=== PATIENT | male | born 1995 | race Caucasian/White ===

== ENCOUNTER 2020-03-15 15:27 | Emergency (ER) | payer OTHER ==
--- NOTE | 2020-03-15 15:41 | PDOC ---
Rapid Medical Evaluation Time Seen by Provider: 03/15/20 15:39 Medical Evaluation: Allergies Allergy/AdvReac Type Severity Reaction Status Date / Time No Known Allergies Allergy Verified 03/15/20 15:39 03/15/20 15:39 Pt reports sore throat, fever, cough, since . No known covid exposure Exam: throat erythema with 2+ tonsils, lungs CTAB, afebrile Orders: Motrin, Strep test. Pt to proceed to the ER for further evaluation Discharge Disposition - Diagnosis Sore throat - Referrals - Patient Instructions - Post Discharge Activity
[2020-03-15 15:42] VITALS: BP 125/81; PULSE 115; TEMP 101.9; BMI 28.8
[2020-03-15] MEDS ORDERED: PENICILLIN G BENZATHINE 1,200,000 UNIT/2 ML PFS IM ONE ×2 (16:40→16:52)
[2020-03-15] MEDS ORDERED: DEXAMETHASONE LIQUID 0.5 MG/5 ML PO ONE (16:40)
--- NOTE | 2020-03-15 16:44 | PDOC ---
History of Present Illness - General Chief Complaint: Cold Symptoms Stated Complaint: FEVER/WEAKNESS Time Seen by Provider: 03/15/20 15:39 - History of Present Illness Initial Comments: 03/15/20 16:41 24-year-old immunized male without comorbidities presents for evaluation of sore throat x4 days with associated fever Past History - Medical History Allergies/Adverse Reactions: Allergies Allergy/AdvReac Type Severity Reaction Status Date / Time No Known Allergies Allergy Verified 03/15/20 15:39 COPD: No GI Disorders: Yes (COLITIS) - Immunization History Immunization Up to Date: No - Psycho-Social/Smoking History Smoking History: Never smoked - Substance Abuse Hx (Audit-C & DAST Scrn) How often the patient has a drink containing alcohol: Never Score: In Men: 4 or > Positive; In Women: 3 or > Positive: 0 Screen Result (Pos requires Nsg. Audit-10AR): Negative In the last yr the pt used illegal drug/Rx for NonMed reason: Yes Score: Yes response is considered Positive: 1 Screen Result (Positive result requires Nsg. DAST-10): Positive Review of Systems - Review of Systems Constitutional: Yes: Fever *Physical Exam - Vital Signs Last Vital Signs Temp Pulse Resp BP Pulse Ox 101.9 F H 115 H 21 H 125/81 97 03/15/20 15:39 03/15/20 15:39 03/15/20 15:39 03/15/20 15:39 03/15/20 15:39 - Physical Exam 03/15/20 16:43 HEAD: NC/AT EYES: Conjuntiva clear Ears: Canals and TM's normal NOSE: No d/c THROAT: Moist mucous membrances, oral pharanx erythemic without exudate, uvula midline NECK: Supple without adenopathy CARDIAC: S1 S2 LUNGS: CTA Full and Equal breath sounds ABDOMEN: Soft NT ND MS: Full ROM in all joints without edema NEUROLOGIC: No gross sensory or motor deficits, NVID SKIN: Normal color and temperature no lesions or rashes Medical Decision Making - Medical Decision Making 03/15/20 16:43 Treatment options discussed Bicillin and Decadron follow-up with PCP I have reviewed the pathophysiology with the patient. They are in agreement with the treatment plan all questions were answered to their satisfaction. Understanding for follow-up without fail was also conveyed to the patient. Again they are in agreement. Discharge - Discharge Information Problems reviewed: Yes Clinical Impression/Diagnosis: Sore throat, Strep pharyngitis Condition: Stable Disposition: HOME - Admission No - Follow up/Referral Referrals: Luther Dee MD [Primary Care Provider] - - Patient Discharge Instructions Additional Instructions: You were given a one-time injection today of penicillin which will treat strep throat. You were given also a long-acting steroid. You should not require any anti-inflammatories from this point forward you may take Tylenol for pain and perform warm salt water gargles 5-6 times a day. Return to the emergency room for worsening symptoms and without fail follow-up with your primary care physician in 1 to 2 days for further evaluation and treatment options. - Post Discharge Activity
[2020-03-15] MEDS ORDERED: DEXAMETHASONE SOD PHOSPHATE 10 MG/1 ML VIAL ONE (16:51)
== END 2020-03-15 16:59 | disposition home or self-care (01) ==
LOC: JERFT 15:27
DX: J02.0 Streptococcal pharyngitis (principal)
CPT/HCPCS: 87880; 99284-25

== ENCOUNTER 2021-02-18 07:37 | Emergency (ER) | payer OTHER ==
[2021-02-18 07:54] VITALS: BP 121/73; PULSE 78; TEMP 97.3; BMI 28.8
== END 2021-02-18 09:15 | disposition home or self-care (01) ==
LOC: JER 07:37
DX: R22.42 Localized swelling, mass and lump, left lower limb (principal)
CPT/HCPCS: 73523-TC-FY; 99284-25

== ENCOUNTER 2022-11-06 11:43 | Emergency (ER) | payer OTHER ==
[2022-11-06 11:58] VITALS: RESP 18
[2022-11-06 12:21] VITALS: BP 119/77; PULSE 107; TEMP 101.6; BMI 26.8
[2022-11-06] MEDS ORDERED: IBUPROFEN 600 MG TABLET (FP) PO ONE ×2 (13:57→14:31)
[2022-11-06] MEDS ORDERED: ACETAMINOPHEN 500 MG TABLET (FP) PO ONE (13:57)
[2022-11-06] MEDS ORDERED: ACETAMINOPHEN 500 MG TABLET (FP) ONE (14:31)
[2022-11-06 15:43] LABS: THROAT:GRP A STREP DETECTED (NOTDETECTED)
== END 2022-11-06 18:29 | disposition home or self-care (01) ==
LOC: JERFT 11:43
DX: J02.0 Streptococcal pharyngitis (principal); R50.9 Fever, unspecified; Z20.822 Contact with and (suspected) exposure to COVID-19
CPT/HCPCS: 0241U-QW; 87651; 99283-25